=== PATIENT | female | born 1955 | race Caucasian/White ===

== ENCOUNTER 2017-05-01 21:51 | Emergency (ER) | payer OTHER ==
[~2017-05-01] VITALS: Ht 167.6 cm; Wt 55.3 kg
--- NOTE | ~2017-05-01 | CT2 ---
[facility] A Service of [facility] & [facility] RADIOLOGY TEXT RESULTS PATIENT: TRAVIS PIERRE LOCATION: [facility] : 57 UNIT #: [id number] AGE: [address]: Shun Roberto MD SEX: F ORDER DR: [id number] [facility]. [place], [place] [address] [id number] MR#: [id number] Acc #: [id number] NAME: TRAVIS PIERRE : 1955 SEX: F STUDY DATE/TIME: 05/02/2017 1:18 UNIT: [facility] ROOM: STUDY DESCRIPTION: CT Abd and Pelv W Cont Attending Physician: Shun Roberto M.D. Ordering Physician: Shun Roberto M.D. Primary Care Physician: Ricardo Beavers M.D. MEDICAL IMAGING REPORT This report is preliminary unless electronic signature is present EXAM CT abdomen and pelvis with contrast, 05/02/2017 HISTORY 61-year-old female in the ED complaining of several month history of generalized abdomen pain, now worsening. TECHNIQUE This CT exam was performed with one or more of the following radiation dose reduction techniques: automatic exposure control, adjustment of mA and/or kV according to patient size, and iterative reconstruction. FINDINGS ABDOMEN FINDINGS: There is a bilobed infrarenal abdominal aortic aneurysm with the larger upper portion measuring about 3.9 cm x 3.7 cm and the smaller lower portion measuring about 3.0 cm x 3.1 cm. There was no periaortic fluid collection or additional abnormality. The mesenteric arteries and renal arteries appear widely patent. Liver, pancreas, spleen and kidneys are normal in size and appearance. Nondistended gallbladder. No bile duct dilatation. Small bowel and colon are normal in caliber and appearance, as imaged. No evidence of acute appendicitis. 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 Urinary bladder is grossly unremarkable, and the visualized rectum is negative. No inguinal hernia. Uterus and adnexal regions not clearly seen. Limited lung base images show no active disease in the lower chest. IMPRESSION STS. [facility] A Service of [facility] & [facility] RADIOLOGY TEXT RESULTS PATIENT: TRAVIS PIERRE LOCATION: [facility] #: [id number] : 57 UNIT #: [id number] AGE: [address]: Shun Roberto MD SEX: F ORDER DR: 1. No definite acute abnormality within the abdomen or pelvis. 2. Bilobed infrarenal abdominal aortic aneurysm measuring up to 3.9 cm. Dictated by... Nikhil Farrell M.D. THIS IS AN ELECTRONICALLY VERIFIED REPORT Nikhil Farrell M.D. at 05/03/2017 6:02 AM PEG/crystal TD: 05/03/2017 01:56 JOB #: [id number] MEDICAL IMAGING REPORT Page 1 of 1 COPY
[2017-05-01 22:40] LABS: URINE SOURCE CLEAN CATCH
[2017-05-01 22:47] LABS: URINE APPEARANCE CLEAR; URINE BILIRUBIN NEG (NEG); URINE BLOOD 1+ (NEG); URINE COLOR YELLOW; URINE GLUCOSE NEG (NEG); URINE KETONE NEG (NEG); URINE LEUKOCYTE ESTERASE NEG (NEG); URINE NITRATE NEG (NEG); URINE PH 7.5 (5-8); URINE PROTEIN NEG (NEG); URINE SPECIFIC GRAVITY 1.007 (1.003-1.035)
[2017-05-01 22:50] LABS: URINE BACTERIA AUWI NEG (NEGATIVE); URINE SQUAMOUS EPITHELIAL CELL NONE SEEN /[HPF]; UWBCS1 AUWI 0-2 (0-5)
[2017-05-01 22:56] LABS: CULTURE INDICATED? NO
[2017-05-02 00:12] LABS: BASOPHIL# 0.1 X10e3 (0-0.3); BASOPHIL% 1.3 % (0-2.5); EOSINOPHIL# 0.1 X10e3 (0-0.7); EOSINOPHIL% 1.4 % (0.0-7.0); HEMATOCRIT 40.1 % (35.0-45.0); HEMOGLOBIN 13.7 gm/dL (12.0-16.0); LYMPHOCYTE# 2.3 X10e3 (1.0-3.5); LYMPHOCYTE% 29.2 % (17.0-45.0); MEAN CELL VOLUME 92.7 FL (83-96); MEAN CORPUSCULAR HEMOGLOBIN 31.6 PG (28-34); MEAN CORPUSCULAR HGB CONC 34.1 g/dL (30-36); MONOCYTE# 0.5 X10e3 (0-1.0); NEUTROPHIL# 4.9 X10e3 (1.5-7.1); NEUTROPHIL% 62.1 % (40-75); PLATELET COUNT 192 X10e3 (140-420); RED BLOOD COUNT 4.32 X10e (3.90-5.30); RED CELL DISTRIBUTION WIDTH 13.6 % (11.0-15.5); WHITE BLOOD COUNT 7.9 X10e3 (4.0-10.5)
[2017-05-02 00:18] LABS: DIFF IND NO
[2017-05-02 00:38] LABS: ALBUMIN SERUM 4.5 g/dL (3.5-5.0); ALKALINE PHOSPHATASE 58 U/L (32-92); ALT (SGPT) 9 U/L (10-40); AMYLASE 24 U/L (0-46); AST (SGOT) 14 U/L (10-42); BILIRUBIN,TOTAL 0.4 mg/dL (0.2-2.0); BLOOD UREA NITROGEN 9 mg/dL (9-23); CALCIUM SERUM 9.3 mg/dL (8.4-10.2); CARBON DIOXIDE 26 mmol/L (22-31); CHLORIDE 107 mmol/L (100-111); CREATININE SERUM 0.6 mg/dL (0.6-1.4); GLOM FILT RATE Estimated 99.1 mL/min (>60); GLUCOSE FASTING 92 mg/dL (70-110); LIPASE 23 U/L (22-51); POTASSIUM 3.6 mmol/L (3.5-5.1); PROTEIN TOTAL SERUM 7.3 g/dL (6.0-8.3); SODIUM 140 mmol/L (135-145)
[2017-05-02 00:39] LABS: BILIRUBIN, DIRECT <0.1 mg/dL (0.0-0.2); BILIRUBIN,INDIRECT 0.3 mg/dL (0.0-0.9)
== END 2017-05-02 02:14 | disposition home or self-care (01) ==
LOC: CED 21:51
PROVIDERS: Emergency Medicine
DX: R10.9 Unspecified abdominal pain (principal); R11.2 Nausea with vomiting, unspecified; F17.200 Nicotine dependence, unspecified, uncomplicated
CPT/HCPCS: 36415; 74177; 80048; 80076; 81003; 82150; 83690; 85025; 96361; 96374; 96375; 99284; C9113; J2765; Q9967